=== PATIENT | male | born 1950 | race Caucasian/White ===

== ENCOUNTER 2018-01-27 07:50 | Emergency (ER) | payer OTHER ==
[2018-01-27 07:57] VITALS: BP 113/66; BMI 37.2
--- NOTE | 2018-01-27 08:11 | DR.ABDMALE ---
HPI - PCP Primary Care Physician: [facility] - Complaint Chief Complaint:: PT. C/O BILATERAL FLANK PAIN. PT. STATES THE PAIN IS RIGHT BELOW HIS NAVEL AROUND BOTH SIDES OF HIS ABDOMEN. PT. STATES THE PAIN HAS BEEN GOING ON FOR A COUPLE OF MONTHS BUT WORSENING THIS MORNING. PT. STATES HE EXPERIENCES THE PAIN EVERY MORNING WHEN HE WAKES UP AND GENERALLY IT GOES AWAY WITHIN AN HOUR. HE DESCRIBES THE PAIN SHARP AND DULL. PT. HAS NAUSEA WITH THE PAIN. - Mode of arrival Mode of Arrival: Ambulatory - Timing Onset of Chief Complaint: 01/27/18 <VITALY JUAREZ - Last Filed: 01/27/18 08:11> - Time seen Time seen: 08:20 - HPI comment HPI Comment: Patient states that his symptoms have been ongoing for one year. He has been followed by the [facility]. <BERNARD JETER - Last Filed: 01/27/18 10:11> PMH - PMH Past Medical History: Yes Past Medical History: Kidney Stones Past Medical History Comment: PTSD, PROSTATE PROBLEMS Past Surgical History: Yes Surgical History: Lithotripsy, Other Past Surgical History Comment: HERNIA - Family History History of Family Medical Conditions: No - Social History Does patient currently use any type of tobacco product: No Have you used tobacco products in the last 12 months: No Type of Tobacco Use: None Does any household member use tobacco: No Alcohol Use: Rarely Do you use any recreational Drugs:: No Lives With: Spouse Lives Where: Home - infectious screening In the last 2 months have you had wt loss of >10#?: NO Have you had fever, night sweats or hemotysis?: No Have you traveled outside the country in the last 6 months?: No Isolation: Standard <VITALY JUAREZ - Last Filed: 01/27/18 08:11> ROS - Review of Systems Constitutional: No Symptoms Reported Eyes: No Symptoms Reported ENTM: No Symptoms Reported, Hearing Loss Cardiovascular: No Symptoms Reported Gastrointestinal/Abdominal: No Symptoms Reported Genitourinary: No Symptoms Reported Neurological: No Symptoms Reported Musculoskeletal: No Symptoms Reported Integumentary: No Symptoms Reported Hematologic/Lymphatic: No Symptoms Reported Endocrine: No Symptoms Reported Psychiatric: No Symptoms Reported All Other Systems: Reviewed and Negative <BERNARD JETER - Last Filed: 01/27/18 10:11> PE - General Limitations: No Limitations General Appearance: Alert, In No Apparent Distress - Head Head Exam: Normal Inspection, Atraumatic - Eyes Eye exam: Normal Appearance, PERRL, EOMI - ENT ENT Exam: Normal Exam - Neck Neck Exam: Normal Inspection - Chest Chest Inspection: Normal Inspection - Respiratory Respiratory Exam: Normal Lung Sounds Bilat Respiratory Exam: Bilateral Clear to Auscultation - Cardiovascular Cardiovascular Exam: Regular Rate - Abdominal Exam Abdominal Exam: Normal Inspection, Normal Bowel Sounds Abdominal Tenderness: RLQ, LLQ - Rectal Rectal Exam: Normal Rectal Tone. negative: Fecal Impaction, Hemorrhoids, Tenderness - Back Back Exam: Normal Inspection - Extremeties Extremities Exam: Normal Inspection, Full ROM - Exam: Male: Normal Inspection - Neurologic Neurological Exam: Alert, Oriented X3, CN II-XII Intact, Normal Gait - Psychiatric Psychiatric Exam: Normal Affect - Skin Skin Exam: Warm, Dry <BERNARD JETER - Last Filed: 01/27/18 10:11> - Vital Signs Vital Signs: Temp Pulse Resp BP Pulse Ox 01/27/18 07:51 97.8 F 54 L 17 113/66 96 ROR - Labs Reviewed Result Diagrams: 01/27/18 08:51 01/27/18 08:51 - Other Results Comments: Stool negative for WBCS - XRAY XRAY Interpreted by: Radiologist (Acute Abdo: No radiographic evidence of acute cardioulmonary disease. No evidence of bowel obstruction or pneumoperitoneum.) <BERNARD JETER - Last Filed: 01/27/18 10:11> - Labs Reviewed Laboratory: 01/27/18 09:27 Stool Gram Stain - Final WBC 5.7 X10^3/uL (3.6-10.0) 01/27/18 08:51 RBC 4.96 X10^6/uL (4.7-6.0) 01/27/18 08:51 Hgb 16.1 g/dL (13.5-18.0) 01/27/18 08:51 Hct 45.1 % (42.0-54.0) 01/27/18 08:51 MCV 91.0 fL (80.0-100.0) 01/27/18 08:51 MCH 32.5 pg (27.0-34.0) 01/27/18 08:51 MCHC 35.7 g/dL (33.0-35.0) H 01/27/18 08:51 RDW 13.6 % (11.6-16.5) 01/27/18 08:51 Plt Count 185 X10^3/uL (150.0-450.0) 01/27/18 08:51 MPV 7.5 fL (7.4-11.0) 01/27/18 08:51 Neut % (Auto) 65.2 % (42.0-75.0) 01/27/18 08:51 Lymph % (Auto) 26.4 % (21.0-51.0) 01/27/18 08:51 Carlton % (Auto) 6.3 % (0.0-13.0) 01/27/18 08:51 Eos % (Auto) 1.5 % (0.9-2.9) 01/27/18 08:51 Baso % (Auto) 0.6 % (0.2-1.0) 01/27/18 08:51 Neut # (Auto) 3.7 x10^3/uL (2.2-4.8) 01/27/18 08:51 Lymph # (Auto) 1.5 X10^3/uL (1.3-2.9) 01/27/18 08:51 Carlton # (Auto) 0.4 x10^3/uL (0.3-0.8) 01/27/18 08:51 Eos # (Auto) 0.1 x10^3/uL (0.0-0.2) 01/27/18 08:51 Baso # (Auto) 0.0 X10^3/uL (0.0-0.1) 01/27/18 08:51 Absolute Nucleated RBC 0.1 /100WBC 01/27/18 08:51 Sodium 142 mmol/L (136-145) 01/27/18 08:51 Corrected Sodium 143 mmol/L (136-145) 01/27/18 08:51 Potassium 3.9 mmol/L (3.5-5.1) 01/27/18 08:51 Chloride 107 mmol/L (98-107) 01/27/18 08:51 Carbon Dioxide 24.5 mmol/L (21-32) 01/27/18 08:51 BUN 20 mg/dL (7-18) H 01/27/18 08:51 Creatinine 1.22 mg/dL (0.70-1.30) 01/27/18 08:51 Est GFR (MDRD) Af Amer > 60 (>60) 01/27/18 08:51 Est GFR (MDRD) Non-Af > 60 (>60) 01/27/18 08:51 Glucose 147 mg/dL (65-99) H 01/27/18 08:51 Calcium 8.8 mg/dL (8.5-10.1) 01/27/18 08:51 Corrected Calcium TNP 01/27/18 08:51 Total Bilirubin 1.50 mg/dL (0.2-1.0) H 01/27/18 08:51 AST 25 Units/L (15-37) 01/27/18 08:51 ALT 51 Units/L (12-78) 01/27/18 08:51 Alkaline Phosphatase 55 Units/L (46-116) 01/27/18 08:51 C-Reactive Protein 1.30 mg/L (0-3.0) 01/27/18 08:51 Total Protein 7.1 g/dL (6.4-8.2) 01/27/18 08:51 Albumin 4.3 g/dL (3.4-5.0) 01/27/18 08:51 Globulin 2.8 g/dL (2.5-4.5) 01/27/18 08:51 Albumin/Globulin Ratio 1.5 Ratio (1.1-2.1) 01/27/18 08:51 Amylase 25 Units/L (25-115) 01/27/18 08:51 Lipase 116 Units/L (73-393) 01/27/18 08:51 H. pylori IgG Antibody Negative (NEGATIVE) 01/27/18 08:51 <VITALY JUAREZ - Last Filed: 01/27/18 08:11> <BERNARD JETER - Last Filed: 01/27/18 10:11> - Diagnosis Discharge Problem: Chronic generalized abdominal pain - Discharge Plan Condition: Stable - Follow ups/Referrals Follow ups/Referrals: [facility],None [Primary Care Provider] - 3 days - Instructions
--- NOTE | 2018-01-27 08:57 | RAD ---
HISTORY: Abdominal pain Study: Upright PA chest with supine and upright abdominal views Comparison: None Findings: The lungs are clear. The heart size is normal. There appear to be remote rib fractures on the left. Scattered large and small bowel gas is present. I see no evidence of bowel obstruction or pneumoperi toneum. No acute bony abnormalities are identified. IMPRESSION: 1. No radiographic evidence of acute cardiopulmonary disease. 2. No evidence of bowel obstruction or pneumoperitoneum. Reported By:
[2018-01-27 09:12] LABS: BASOPHILS % (AUTO) 0.6 % (0.2-1.0); EOSINOPHILS # (AUTO) 0.1 x10^3/uL (0.0-0.2); EOSINOPHILS % (AUTO) 1.5 % (0.9-2.9); HEMATOCRIT 45.1 % (42.0-54.0); HEMOGLOBIN 16.1 g/dL (13.5-18.0); LYMPHOCYTES # (AUTO) 1.5 X10^3/uL (1.3-2.9); LYMPHOCYTES % (AUTO) 26.4 % (21.0-51.0); MEAN CORPUSCULAR HEMOGLOBIN 32.5 pg (27.0-34.0); MEAN CORPUSCULAR HGB CONC 35.7 g/dL (33.0-35.0); MEAN PLATELET VOLUME 7.5 fL (7.4-11.0); MONOCYTES # (AUTO) 0.4 x10^3/uL (0.3-0.8); MONOCYTES % (AUTO) 6.3 % (0.0-13.0); NEUTROPHILS # (AUTO) 3.7 x10^3/uL (2.2-4.8); NEUTROPHILS % (AUTO) 65.2 % (42.0-75.0); PLATELET COUNT 185 X10^3/uL (150.0-450.0); RED BLOOD COUNT 4.96 X10^6/uL (4.7-6.0); RED CELL DISTRIBUTION WIDTH 13.6 % (11.6-16.5); WHITE BLOOD COUNT 5.7 X10^3/uL (3.6-10.0)
[2018-01-27 09:14] LABS: AMYLASE 25 Units/L (25-115); LIPASE 116 Units/L (73-393)
[2018-01-27 09:19] LABS: ALANINE AMINOTRANSFERASE 51 Units/L (12-78); ALBUMIN 4.3 g/dL (3.4-5.0); ALKALINE PHOSPHATASE 55 Units/L (46-116); ASPARTATE AMINO TRANSFERASE 25 Units/L (15-37); BLOOD UREA NITROGEN 20 mg/dL (7-18); CALCIUM 8.8 mg/dL (8.5-10.1); CARBON DIOXIDE 24.5 mmol/L (21-32); CHLORIDE 107 mmol/L (98-107); COR NA(FOR HYPERGLY) 143 mmol/L (136-145); CREATININE 1.22 mg/dL (0.70-1.30); SODIUM 142 mmol/L (136-145); TOTAL PROTEIN 7.1 g/dL (6.4-8.2); eGFR BLACK RACES > 60 (>60); eGFR NON BLACK RACES > 60 (>60)
== END 2018-01-27 10:14 | disposition home or self-care (01) ==
LOC: ER 08:04
DX: R10.31 Right lower quadrant pain (principal)
CPT/HCPCS: 36415; 74022; 80053; 82150; 83690; 85025; 86140; 86677; 87205; 99282; 99283